=== PATIENT | female | born 1965 | race Caucasian/White ===

== ENCOUNTER 2024-03-22 12:52 | Emergency (ER) | payer BC ==
[~2024-03-22] VITALS: Ht 157.5 cm; Wt 55.3 kg
[2024-03-22 13:03] VITALS: BP 130/76; PULSE 66; RESP 18; TEMP 97.5; O2SAT 99
[2024-03-22] MEDS: NACL 0.9% 1,000 ML IV ONE (13:37)
[2024-03-22] MEDS: ONDANSETRON 4 MG/2 ML VIAL IVP ONE (13:42)
[2024-03-22] MEDS: MORPHINE SULFATE 4 MG/ML SYR IVP ONE (13:42)
[2024-03-22 13:52] LABS: BASOPHILS % (AUTO) 0.3 % (0.0-2.0); HEMATOCRIT 38.9 % (36-48); HEMOGLOBIN 12.8 g/dL (12.0-16.0); LYMPHOCYTES # (AUTO) 0.7 K/uL (2.5-16.5); LYMPHOCYTES % (AUTO) 6.8 % (20.5-51.1); MEAN CORPUSCULAR HEMOGLOBIN 28 pg (27-31); MEAN CORPUSCULAR HGB CONC 33 g/dL (33-37); MEAN CORPUSCULAR VOLUME 85.5 fL (80-94); MONOCYTES # (AUTO) 0.3 K/uL (0.8-1.0); MONOCYTES % (AUTO) 2.5 % (1.7-9.3); NEUTROPHILS # (AUTO) 9.3 K/uL (1.8-7.7); NEUTROPHILS % (AUTO) 90.4 % (42.2-75.2); PLATELET COUNT (AUTO) 287 K/uL (140-450); RED BLOOD CELL COUNT(AUTO) 4.55 MIL/uL (4.20-5.40); RED CELL DISTRIBUTION WIDTH 13.3 % (11.6-13.7); WHITE BLOOD COUNT (AUTO) 10.2 K/uL (4.8-10.8)
[2024-03-22 14:26] LABS: CALCIUM 8.9 mg/dL (8.5-10.1); CARBON DIOXIDE 23.5 mmol/L (21-32); CREATININE 0.7 mg/dL (0.6-1.3); POTASSIUM 3.5 mmol/L (3.5-5.1)
[2024-03-22 14:33] LABS: ALBUMIN 4.2 g/dL (3.4-5.0); BILIRUBIN,DIRECT 0.1 mg/dL (0.0-0.3); TOTAL BILIRUBIN 0.4 mg/dL (0.0-1.0); TOTAL PROTEIN, SERUM 7.3 g/dL (6.4-8.2)
[2024-03-22 15:09] VITALS: O2SAT 100
[2024-03-22 15:18] LABS: APPEARANCE,URINE CLOUDY (CLEAR); BILIRUBIN,URINE NEGATIVE (NEGATIVE); BLOOD, URINE 3+ (NEGATIVE); COLOR,URINE YELLOW (YELLOW); LEUKOCYTE ESTERASE ,URINE TRACE (NEGATIVE); NITRITE, URINE NEGATIVE (NEGATIVE); PH,URINE 7.5 (5.0-9.0); PROTEIN,URINE NEGATIVE (NEGATIVE); UGLUCOSE NEGATIVE (NEGATIVE); UROBILINOGEN,URINE 0.2 EU/dL (0.2 - 1)
[2024-03-22 15:25] LABS: BACTERIA,URINE 10-30 (MOD) /HPF (None Seen); RBC,URINE 11-20 (MOD) /HPF (0-5); SQUAMOUS EPITHELIAL CELL,UR 4-10 (MOD) /LPF (0-3 (FEW)); WBC,URINE 0-5 /HPF (0-5)
[2024-03-22 16:46] VITALS: TEMP 98.1
[2024-03-22 18:11] VITALS: O2SAT 100
[2024-03-22] MEDS ORDERED: ACET-5629 PO (18:48)
[2024-03-22] MEDS ORDERED: IBUP-2213 PO (18:48)
[2024-03-22] MEDS: KETOROLAC 30 MG/ML VIAL IVP ONE (18:53)
[2024-03-22 19:04] VITALS: BP 148/77; PULSE 71; RESP 16; O2SAT 98
== END 2024-03-22 19:05 | disposition home or self-care (01) ==
LOC: MED 12:52
DX: N13.2 Hydronephrosis with renal and ureteral calculous obstruction (principal); K80.50 Calculus of bile duct without cholangitis or cholecystitis without obstruction; Z79.899 Other long term (current) drug therapy
CPT/HCPCS: 36415; 74176; 80048; 80076; 81001; 83605; 83690; 84703; 85025; 87040; 87086; 96374; 96375; 99285; J1885; J2270; J2405; J7030